=== PATIENT | female | born 2000 | race Asian ===

== ENCOUNTER 2024-04-11 16:38 | Emergency (ER) | payer BC, SELFPAY ==
[2024-04-11 16:43] VITALS: BP 107/77; PULSE 77; RESP 16; TEMP 36.7; O2SAT 99; BMI 22.8
--- NOTE | 2024-04-11 18:21 | ED.HEATRA ---
HPI - Head Injury <Brianne Stark PA-C - Last Filed: 04/11/24 19:51> General Chief complaint: Head Injury Stated complaint: Fall, hit head sent by [facility] Time Seen by Provider: 04/11/24 18:01 Source: patient Mode of arrival: Ambulatory History of Present Illness HPI Narrative: Anjelica Lozano is a pleasant 24-year-old female with a past medical history of POTS who presents to the emergency department for headache after head injury that occurred yesterday. Patient states that she was cleaning out a car yesterday when she attempted to grab onto the anterior car handle but missed falling backwards. States that she landed on her behind and then fell back hitting the back of her head. States that since then she has had frontal forehead pressure-like headache, brain fog, dizziness when looking at her phone screen. Patient states she took ibuprofen this morning and her symptoms have improved significantly since yesterday however she does have a history of concussion 4 years ago and was concerned about a possible concussion. Admits to some nausea immediately after the injury which has resolved. Denies loss of consciousness or vomiting. Denies blood thinner use. Admits to some tailbone pain as well however no difficulty with sitting or walking. Related Data Home Medications Medication Instructions Recorded Confirmed ivabradine 5 mg tablet (Corlanor) 5 mg PO BID 11/27/22 11/27/22 midodrine 5 mg tablet 5 mg PO TID 11/27/22 11/27/22 Allergies Allergy/AdvReac Type Severity Reaction Status Date / Time No Known Drug Allergies Allergy Unverified 11/27/22 13:33 Review of Systems <Brianne Stark PA-C - Last Filed: 04/11/24 19:51> Review of Systems ROS Unobtainable: All systems reviewed & are unremarkable except as noted in HPI and below Patient History <Brianne Stark PA-C - Last Filed: 04/11/24 19:51> Social History Smoking Status: Current every day smoker Smoking Status: Current every day smoker tobacco type: vaping Exam <Brianne Stark PA-C - Last Filed: 04/11/24 19:51> Narrative Exam Narrative: GENERAL: 24 year old patient appears stated age. Well-developed patient, in no acute distress. HEAD: Atraumatic. Normocephalic. No scalp wounds or swelling. EYES: PERRL. Extraocular motions intact. No scleral icterus. No injection or drainage. ENT: Bilateral TMs normal with no hemotympanum. Nose without bleeding, purulent drainage. Throat without erythema, tonsillar hypertrophy or exudate. Airway patent. NECK: Trachea midline. Cervical ROM intact. No midline bony pain. CARDIOVASCULAR: Regular rate and rhythm. RESPIRATORY: ?Nonlabored respirations. ?Speaking in clear, full sentences. ?Clear to auscultation. Breath sounds equal bilaterally. No wheezes, rales, or rhonchi. ? GASTROINTESTINAL: Abdomen soft, non-tender, nondistended. EXTREMITIES: No edema or joint tenderness. BACK: Nontender without deformity or crepitance. No flank tenderness. No bruising. No point tenderness over tailbone. NEURO: AOx3. ?Clear speech. ?Moves all 4 extremities appropriately. Sensation equal and intact throughout extremities and face. No facial asymmetry. SKIN: No rash or erythema of visible areas Initial Vital Signs Initial Vital Signs: Vital Signs Temperature 98.1 F 04/11/24 16:43 Pulse Rate 77 04/11/24 16:43 Respiratory Rate 16 04/11/24 16:43 Blood Pressure 107/77 04/11/24 16:43 Pulse Oximetry 99 04/11/24 16:43 Oxygen Delivery Method Room Air 04/11/24 16:43 <Gus Penn MD - Last Filed: 04/11/24 21:14> Initial Vital Signs Initial Vital Signs: Vital Signs Temperature 98.1 F 04/11/24 16:43 Pulse Rate 77 04/11/24 16:43 Respiratory Rate 16 04/11/24 16:43 Blood Pressure 107/77 04/11/24 16:43 Pulse Oximetry 99 04/11/24 16:43 Oxygen Delivery Method Room Air 04/11/24 16:43 Scores <Brianne Stark PA-C - Last Filed: 04/11/24 19:51> [facility] CT Head Rule Age <16 years old: No Patient on blood thinners: No Seizure after injury: No Exclusion: Patient NOT Excluded, Proceed to next steps GCS < 15 at 2 hr post trauma: No Suspected open or depressed skull fracture: No Any sign of basilar skull fracture (hemotympanum, raccoon eyes, Burgos's sign, CSF luz-/rhinorrhea): No Two or more episodes of vomiting: No Age greater or equal to 65 years: No Retrograde amnesia to the event greater or equal to 30 min: No Dangerous Mechanism (pedestrian vs. mv, occupant ejected from mv, fall from >3 ft or > 5 stairs): No Recommendation: CT unnecessary <Gus Penn MD - Last Filed: 04/11/24 21:14> [facility] CT Head Rule Exclusion: Patient NOT Excluded, Proceed to next steps Recommendation: CT unnecessary Course <Brianne Stark PA-C - Last Filed: 04/11/24 19:51> Orders Ordered: Discontinued Medications Acetaminophen (Acetaminophen 325 Mg Tablet) 975 mg PO NOW ONE Stop: 04/11/24 18:39 Last Admin: 04/11/24 18:43 Dose: 975 mg Documented By: RB Ibuprofen (Ibuprofen 400 Mg Tablet) 400 mg PO NOW ONE Stop: 04/11/24 18:39 Last Admin: 04/11/24 18:44 Dose: 400 mg Documented By: RB Vital Signs Vital signs: Vital Signs - 8 hr 04/11/24 16:43 04/11/24 18:48 Temperature 98.1 F 98.1 F Pulse Rate 77 68 Respiratory Rate 16 18 Blood Pressure 107/77 131/61 Pulse Oximetry 99 99 Oxygen Delivery Method Room Air Room Air <Gus Penn MD - Last Filed: 04/11/24 21:14> Orders Ordered: Discontinued Medications Acetaminophen (Acetaminophen 325 Mg Tablet) 975 mg PO NOW ONE Stop: 04/11/24 18:39 Last Admin: 04/11/24 18:43 Dose: 975 mg Documented By: RB Ibuprofen (Ibuprofen 400 Mg Tablet) 400 mg PO NOW ONE Stop: 04/11/24 18:39 Last Admin: 04/11/24 18:44 Dose: 400 mg Documented By: RB Vital Signs Vital signs: Vital Signs - 8 hr 04/11/24 16:43 04/11/24 18:48 Temperature 98.1 F 98.1 F Pulse Rate 77 68 Respiratory Rate 16 18 Blood Pressure 107/77 131/61 Pulse Oximetry 99 99 Oxygen Delivery Method Room Air Room Air MDM - Head Injury <Brianne Stark PA-C - Last Filed: 04/11/24 19:51> Medical Records Attestation: I reviewed the patient's medical records. [facility] Narrative Medical decision making narrative: 24-year-old female with a past medical history of POTS who presents to the emergency department for headache after head injury that occurred yesterday. No LOC. Differential diagnosis includes but is not limited to closed head injury, traumatic brain injury, concussion, contusion, tailbone contusion, etc. On exam patient is in no acute distress, nontoxic-appearing, all vital signs within normal limits, no focal neurologic deficits. Trinity CT head rule negative. Her symptoms are most consistent with concussion after head injury. We will treat symptoms with ibuprofen/Tylenol, recommended rest, decrease mental strain, visual strain, follow up with primary care doctor within 1 week for repeat evaluation. Advised patient to return to ER for any new or worsening symptoms. She verbalized understanding of all information and is agreeable to discharge home. Patient is stable for discharge at this time. Discharge Plan Departure Patient Disposition: Home Clinical Impression: Concussion without loss of consciousness Qualifiers: Encounter type: initial encounter Qualified Code(s): S06.0X0A - Concussion without loss of consciousness, initial encounter Instructions: DI for Closed Head Injury Activity Restrictions/Additional Instructions: Dear Ms. Lozano, Today you were evaluated for headache and symptoms following a fall causing head injury. Your symptoms are most consistent with a concussion. Please take Ibuprofen (Motrin/Advil) or Acetaminophen (Tylenol) for pain. These are available over the counter. You may take Ibuprofen 600 mg every 8 hours with food for pain. You may also take Acetaminophen 650 mg every 4-6 hours for pain. Do not exceed 3000 mg of Tylenol a day as this can cause liver damage. Do not drink alcohol with either of these medications. Avoiding highly stimulating activities and even TV or computers may be helpful in minimizing your symptoms. Avoid activities that will put you at risk for another head injury for at least a week. You can take tylenol or motrin for headache. Return for worsening or persistent symptoms. Please follow up with your primary care doctor within the next 7 days for ER follow-up. (If you do not have a PCP you can call [phone]. ?to schedule an appointment with an [facility] Primary Care Provider) IF YOU DEVELOP ANY NEW OR WORSENING SYMPTOMS, RETURN TO THE ER! Please read the attached instructions, they highlight more specific treatments and interventions for you at home. Thank you for letting me participate in your care, Brianne Stark PA-C Prescriptions: No Action midodrine 5 mg tablet 5 mg PO TID Rx Instructions: do not give last dose of day after 6PM or within 4 hrs of bedtime Corlanor 5 mg tablet 5 mg PO BID Rx Instructions: must administer with a meal/food Referrals: Miscellaneous,Doctor, MD [Primary Care Provider] - Stand Alone Forms: Patient Portal/API/Survey, Work Release Note ED Sign-out <Gus Penn MD - Last Filed: 04/11/24 21:14> Cosign ED Attending Cosignature Attestation: I was immediately available in the department for consultation. This documentation has been reviewed and I agree with assessment and plan. Supervised by Gus Penn MD
[2024-04-11] MEDS: ACETAMINOPHEN 325 MG TABLET 975 MG PO (18:43)
[2024-04-11] MEDS: IBUPROFEN 400 MG TABLET PO (18:44)
[2024-04-11 18:48] VITALS: BP 131/61; PULSE 68; RESP 18; TEMP 36.7; O2SAT 99
== END 2024-04-11 18:48 | disposition home or self-care (01) ==
PROVIDERS: Emergency Provider Physician Assistant
DX: S06.0X0A Concussion without loss of consciousness, initial encounter (principal); W01.0XXA Fall on same level from slipping, tripping and stumbling without subsequent striking against object, initial encounter; Y93.89 Activity, other specified; Y92.810 Car as the place of occurrence of the external cause
CPT/HCPCS: 99283